=== PATIENT | male | born 1990 ===

== ENCOUNTER 2020-05-18 08:26 | Inpatient (IN) ==
[2020-05-18] MEDS ORDERED: ONDANSETRON 4 MG/2 ML VIAL IV PRN (13:12)
[2020-05-18] MEDS: ENOXAPARIN 40 MG/0.4 ML SYRINGE SUBCUT SCH (13:43)
[2020-05-18 13:54] LABS: Basophils # 0.1 10*3/uL (0.0-0.2); Basophils % 0.5 % (0.0-0.8); Eosinophils # 0.2 10*3/uL (0.0-0.87); Eosinophils % 1.1 % (0.00-10.9); Hematocrit 41.6 VOL% (42.0-52.0); Hemoglobin 13.7 GM/DL (14.0-18.0); Immature Granulocytes % 5.1 %; Immature Granulocytes Absolute 0.81 #; Lymphocytes # 1.9 10*3/uL (1.4-4.0); Lymphocytes % 11.7 % (21.2-54.2); Mean Corpuscular HGB Conc 32.9 GM/DL (32-36); Mean Corpuscular Volume 88.5 FL (87-102); Mean Platelet Volume 9.5 FL (9.6-12.0); Monocytes % 10.1 % (1.7-12.7); Neutrophils % 71.5 % (38.7-73.9); Platelet Count 388 T/CUMM (130-400); Red Cell Distribution Width 13.5 % (9.3-17.3)
[2020-05-18] MEDS ORDERED: VANCOMYCIN INJ 2,000 MG in SODIUM CHLORIDE 0.9% 500 ML IV ONE (14:00)
[2020-05-18 14:10] LABS: Calcium 8.6 MG/DL (8.5-10.1); Osmolality,Calculated 279.4 MOS/KG (273-304)
[2020-05-18 14:19] LABS: Band Neutrophils 2 % (0-10); Lymphocytes 15 % (20-55); Segmented Neutrophils 73 % (50-85); Total Cells Counted 100
[2020-05-18 14:20] LABS: Anisocytosis Slight; Hypochromasia Slight; Platelet Estimate Adequate; Reactive Lymphocytes Few
[2020-05-18] MEDS: MORPHINE 4 MG/1 ML VIAL IV PRN (18:29)
[2020-05-19 06:33] LABS: Osmolality,Calculated 278.4 MOS/KG (273-304)
[2020-05-19] MEDS ORDERED: BUPIVACAINE MPF 0.25% 30 ML VIAL ONE (07:52)
[2020-05-19] MEDS ORDERED: LIDOCAINE 1%/EPI INJ 20 ML VIAL ONE (07:52)
[2020-05-19] MEDS ORDERED: LACTATED RINGERS 1,000 ML IV SCH (08:00)
[2020-05-19] MEDS ORDERED: SEVOFLURANE 1 UNIT/15 MINUTE INH ONE (08:52)
[2020-05-19] MEDS ORDERED: LIDOCAINE 2% 5 ML VIAL ONE (08:52)
[2020-05-19] MEDS ORDERED: propofoL 200 MG/20 ML VIAL IV ONE (08:52)
[2020-05-19] MEDS ORDERED: MIDAZOLAM 2 MG/2 ML VIAL ONE (08:52)
[2020-05-19] MEDS ORDERED: fentaNYL 100 MCG/2 ML VIAL ONE (08:52)
[2020-05-19] MEDS ORDERED: ONDANSETRON 4 MG/2 ML VIAL ONE (08:53)
[2020-05-19] MEDS ORDERED: DEXAMETHASONE 4 MG/1 ML VIAL ONE (08:53)
[2020-05-19] MEDS ORDERED: KETOROLAC 30 MG/1 ML VIAL ONE (08:53)
[2020-05-19] MEDS: PANTOPRAZOLE 40 MG TABLET PO SCH (10:14)
[2020-05-19] MEDS: VANCOMYCIN INJ 2,000 MG in SODIUM CHLORIDE 0.9% 500 ML IV SCH (14:58)
[2020-05-19] MEDS: ENOXAPARIN 40 MG/0.4 ML SYRINGE SUBCUT SCH (21:16)
[2020-05-20] MEDS: PANTOPRAZOLE 40 MG TABLET PO SCH (09:56)
[2020-05-20 10:43] LABS: Calcium 8.5 MG/DL (8.5-10.1); Osmolality,Calculated 278.8 MOS/KG (273-304)
[2020-05-20] MEDS: MORPHINE 4 MG/1 ML VIAL IV PRN (11:37)
[2020-05-20] MEDS: VANCOMYCIN INJ 2,000 MG in SODIUM CHLORIDE 0.9% 500 ML IV SCH (15:04)
[2020-05-20] MEDS: ENOXAPARIN 40 MG/0.4 ML SYRINGE SUBCUT SCH (20:38)
[2020-05-21] MEDS: PANTOPRAZOLE 40 MG TABLET PO SCH (08:42)
[2020-05-21] MEDS: CLINDAMYCIN INJ 300 MG in PREMIX 1 EACH IV SCH ×2 (15:34→21:59)
[2020-05-21] MEDS: IBUPROFEN 400 MG TABLET PO PRN (17:36)
[2020-05-21] MEDS: ENOXAPARIN 40 MG/0.4 ML SYRINGE SUBCUT SCH (22:11)
[2020-05-22] MEDS: CLINDAMYCIN INJ 300 MG in PREMIX 1 EACH IV SCH ×2 (03:51→08:33)
[2020-05-22 06:40] LABS: Basophils # 0.1 10*3/uL (0.0-0.2); Basophils % 0.4 % (0.0-0.8); Eosinophils # 0.2 10*3/uL (0.0-0.87); Hematocrit 42.1 VOL% (42.0-52.0); Hemoglobin 13.8 GM/DL (14.0-18.0); Immature Granulocytes % 0.9 %; Immature Granulocytes Absolute 0.15 #; Lymphocytes # 1.8 10*3/uL (1.4-4.0); Lymphocytes % 10.8 % (21.2-54.2); Mean Corpuscular HGB Conc 32.8 GM/DL (32-36); Mean Corpuscular Volume 87.7 FL (87-102); Mean Platelet Volume 9.2 FL (9.6-12.0); Monocytes % 8.2 % (1.7-12.7); Neutrophils % 78.7 % (38.7-73.9); Platelet Count 424 T/CUMM (130-400); Red Cell Distribution Width 13.2 % (9.3-17.3); White Blood Count 16.7 T/CUMM (4-12)
[2020-05-22 07:11] LABS: Calcium 8.8 MG/DL (8.5-10.1); Osmolality,Calculated 281.5 MOS/KG (273-304)
[2020-05-22] MEDS: PANTOPRAZOLE 40 MG TABLET PO SCH (08:33)
[2020-05-22] MEDS: IBUPROFEN 400 MG TABLET PO PRN (10:48)
[2020-05-22 11:45] VITALS: BP 121/73
== END 2020-05-22 13:38 | disposition home health service (06) | DRG 581 ==
LOC: N.5E 12:00
PROVIDERS: ADMIT Surgery; ATTEND Surgery